=== PATIENT | female | born 1980 | race Caucasian/White ===

== ENCOUNTER 2019-09-13 14:36 | Emergency (ER) | payer BC, SELFPAY ==
[2019-09-13 14:48] VITALS: BP 141/84; PULSE 91; RESP 20; TEMP 36.8; O2SAT 100
--- NOTE | 2019-09-13 15:27 | ED.SKABFB ---
HPI - Skin/Abscess/Foreign Bdy General Chief complaint: Skin/Abscess/Foreign Body Stated complaint: pain in legs Time Seen by Provider: 09/13/19 15:05 Source: patient and RN notes reviewed Mode of arrival: ambulatory Limitations: no limitations History of Present Illness HPI narrative: Patient presents today complaining of swelling to the hands, legs, and discoloration to the abdomen in all extremities. Patient is unable to accurately pinpoint when her symptoms began, but states that she has had pain in all of her extremities as well as swelling and discoloration of the abdomen and hands for at least the last 6 months. She has had discoloration of the legs for approximately 6 months as well, but swelling of the legs only started approximately 1 week ago. Denies shortness of breath, chest pain, fever or recent illness. She presents today for a work note as she had to call into work regarding her swollen hands today. 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 She does have history of endocarditis, hep C, and valve replacement. After her valve replacement and endocarditis at [facility], she never followed up after discharge. She has also quit all of her previously prescribed medications. She has been taking a baby aspirin daily, and also takes methadone. Related Data Home Medications Medication Instructions Recorded Confirmed Aspir-[id number] 09/13/19 methadone 09/13/19 Allergies Allergy/AdvReac Type Severity Reaction Status Date / Time No Known Allergies Allergy Unknown Unverified 06/27/05 06:20 knda Allergy Mild Uncoded 06/15/05 09:48 Review of Systems Review of Systems: Narrative: CONSTITUTIONAL: Denies body aches, fever, chills, or sweats. EYES: Denies visual changes, redness, or discharge. ENT: Denies rhinorrhea, congestion, sore throat, or otalgia. CARDIOVASCULAR: Denies chest pain, palpitations, or edema. RESPIRATORY: Denies cough or dyspnea. GASTROINTESTINAL: Denies abdominal pain, nausea, vomiting, or diarrhea. +Discoloration GENITOURINARY: Denies dysuria or hematuria. SKIN: Denies rash, itching, or wounds. MUSCULOSKELETAL: Denies back pain. Swelling and discoloration of the legs and hands. NEUROLOGIC: Denies headache, numbness, tingling, or weakness. PSYCH: Denies depression or anxiety. [facility] Past Medical History Medical History Hepatitis C History of endocarditis History of intravenous drug use in remission Surgical History Surgical History (Updated 09/13/19 @ 15:28 by Sumaya Hill, [facility], ) Heart valve replaced Social History Social History (Updated 09/13/19 @ 15:28 by Sumaya Hill, [facility], ) Substance use: former Substance use type: heroin and IV drugs Last use: May 2017 Comments At time of signature, I have reviewed and agree with nursing past medical, surgical, social and family history unless otherwise noted. Please see nursing chart for further information. There is no relevant family history pertinent to the presenting complaint Exam Narrative: Exam Narrative: GENERAL: Well-appearing, well-nourished, and in no acute distress. HEAD: Normocephalic, atraumatic. EYES: EOMI. No redness or drainage. Conjunctivae normal. ENT: Mucous membranes pink and moist. NECK: Normal AROM. Supple. No lymphadenopathy. CHEST: No respiratory distress. Clear to auscultation. HEART: Regular rate and rhythm. Right pedal pulse 2+. Left pedal pulse 1+. ABDOMEN: Soft, nontender, nondistended, normal active bowel sounds. Below the umbilicus, there is a large area of mottling/purple discoloration of the skin. This affected skin is also cool to the touch. MUSCULOSKELETAL: No bony tenderness. EXTREMITIES: Bilateral hands: Bright red in color with 2+ non pitting edema. Distal sensation intact. Capillary refill normal. Radial pulse normal bilaterally. Right le-2+ pitting edema. Mottling of the entire upper and lower leg to the ankle line.
== END 2019-09-13 15:31 | disposition short-term general hospital (02) ==
LOC: EXPBETH 14:42
PROVIDERS: Emergency Provider Nurse Practitioner
DX: R60.0 Localized edema (principal); R23.8 Other skin changes
CPT/HCPCS: 99211; G0463